=== PATIENT | male | born 1960 | race Caucasian/White ===

== ENCOUNTER 2024-07-28 22:30 | Inpatient (IN) | payer BC ==
[~2024-07-28] VITALS: Ht 175.3 cm; Wt 63.0 kg
[2024-07-28] VITALS (11 sets, daily range): BP systolic 91–111; BP diastolic 53–82
--- NOTE | 2024-07-28 22:35 | NUR ---
PT TO RM 12 VIA EMS
[2024-07-28] MEDS ORDERED: IPRATROPIUM-Albuterol 0.5MG-2.5MG/3 ML NEB ONE (22:45)
[2024-07-28] MEDS ORDERED: methylPREDNISolone SODIUM SUCC 125 MG/2 ML SDV IV ONE (22:45)
[2024-07-28] MEDS ORDERED: SODIUM CHLORIDE 0.9% 250 ML IV PRN (22:50)
[2024-07-28] MEDS ORDERED: dilTIAZem HCL 50 MG/10 ML SDV IV ONE ×2 (22:50→23:00)
[2024-07-28] MEDS ORDERED: DILTIAZEM HCL 125 MG in SODIUM CHLORIDE 0.9% 100 ML IV ONE (22:50)
[2024-07-28] MEDS ORDERED: HYDROcodone 5 MG/Acetaminophen 325 MG/COMBO PO ONE (23:00)
[2024-07-28 23:04] LABS: BASO% 0.4 % (0-3); EOS% 0.8 % (0-8); HEMATOCRIT 31.4 % (39.0-50.0); HEMOGLOBIN 10.7 g/dl (14.0-18.0); IMMATURE GRANULOCYTES 1.2 % (0.0-5.0); LYMPH% 12.5 % (15-41); MEAN CELL VOLUME 83.7 fL CALC (80.0-100.0); MEAN CORPUSCULAR HGB 28.5 pG CALC (26.0-32.0); MEAN CORPUSCULAR HGB CONC 34.1 g/dL CAL (32.0-36.0); MONO% 13.5 % (2-13); NEUT# 8.01 thou/uL (1.82-7.42); NEUT% 71.6 % (42-76); RED BLOOD COUNT 3.75 mill/uL (4.70-6.10)
[2024-07-28] MEDS ORDERED: KETOROLAC TROMETHAMINE 30 MG/ML SDV IV ONE (23:10)
[2024-07-28 23:21] LABS: ALBUMIN 3.5 g/dL (3.2-5.0); ALKALINE PHOSPHATASE 112 u/l (38-126); ANION GAP 13 (6-22 (CALC)); BILIRUBIN, TOTAL 0.3 mg/dL (0.2-1.3); BUN 9 mg/dL (8-23); BUN/CREATININE RATIO 12 (12-20 (CALC)); CARBON DIOXIDE 27 mmol/l (22-30); CHLORIDE 97 mmol/l (95-108); CREATININE 0.8 mg/dL (0.7-1.3); ESTIMATED GFR 99 ML/MIN (>=90 (CALC)); SGOT/AST 38 u/l (19-48); SODIUM 133 mmol/l (137-146); TOTAL PROTEIN 6.7 g/dL (6.3-8.2)
[2024-07-28 23:51] LABS: TSH, 3RD GENERATION 1.82 uIU/mL (0.47 - 4.68)
[2024-07-29] VITALS (64 sets, daily range): BP systolic 90–123; BP diastolic 54–74
--- NOTE | 2024-07-29 | NUR ---
PATIENT FROM 15MG/HR TO 10MG/HR. HR SR 80
[2024-07-29 00:23] LABS: PROTHROMBIN TIME 11.2 SECONDS (9.0-12.5)
[2024-07-29 00:34] LABS: D-DIMER 0.73 mg/L (0.19-0.60)
[2024-07-29] MEDS ORDERED: POTASSIUM CHLORIDE 20 MEQ/TAB PO ONE (00:45)
--- NOTE | 2024-07-29 01:35 | NUR ---
PATIENT TO CT, WRITTER AT SIDE.
--- NOTE | 2024-07-29 02:50 | NUR ---
CARDIZEM STOPPED AT THIS TIME.
--- NOTE | 2024-07-29 03:05 | NUR ---
REPEAT EKG OBTAINED.
[2024-07-29] MEDS ORDERED: METOPROLOL TARTRATE 25 MG/TAB PO ONE (03:10)
[2024-07-29] MEDS ORDERED: AZITHROMYCIN 500 MG in SODIUM CHLORIDE 0.9% 500 ML IV ONE (03:10)
[2024-07-29] MEDS ORDERED: cefTRIAXone SODIUM 2 GM in SODIUM CHLORIDE 0.9% 100 ML IV ONE (03:10)
[2024-07-29] MEDS ORDERED: FAMOTIDINE 10MG/ML 2ML SDV IV PRN (03:15)
[2024-07-29] MEDS ORDERED: ENOXAPARIN SODIUM 40 MG/0.4 ML SYR SC SCH (03:15)
[2024-07-29] MEDS ORDERED: ONDANSETRON 4 MG/TAB ODT PO PRN (03:15)
[2024-07-29] MEDS ORDERED: NICOTINE TRANSDERMAL 21 MG/PATCH TD PRN (03:15)
[2024-07-29] MEDS ORDERED: ALUM & MAG HYDROX-SIMETHICONE 30 ML PO PRN (03:15)
[2024-07-29] MEDS ORDERED: Polyethylene Glycol 3350 17 GM/PKT PO PRN (03:15)
[2024-07-29] MEDS ORDERED: SODIUM CHLORIDE 0.9% 1,000 ML IV PRN (03:15)
[2024-07-29] MEDS ORDERED: IBUPROFEN 800 MG/TAB PO PRN (03:15)
[2024-07-29] MEDS ORDERED: ONDANSETRON HCl 4 MG/2 ML SDV IV PRN (03:15)
[2024-07-29] MEDS ORDERED: METOPROLOL TARTRATE 50 MG/TAB PO SCH (04:00)
[2024-07-29] MEDS ORDERED: OXYCODONE5 M1 PO (04:23)
[2024-07-29] MEDS ORDERED: ADDERALL30 MG PO (04:24)
[2024-07-29] MEDS ORDERED: PROMETHAZINE HY25 M1 PO (04:30)
[2024-07-29] MEDS ORDERED: MONTELUKAST SOD10 MG PO (04:33)
--- NOTE | 2024-07-29 05:05 | NUR ---
REPORT GIVEN TO Alena PAINTER RN
--- NOTE | 2024-07-29 05:25 | NUR ---
PATIENT TRASNPORTED TO MED SURG BY Aakash Quinteros
--- NOTE | 2024-07-29 05:31 | NUR ---
pateints vital upon admission is as follows: Blood pressure 98/61, Pulse 66, Respirations 18, Temperature 96.7, and O2 is 99. Patients weight is 63.2kg
[2024-07-29] MEDS ORDERED: methylPREDNISolone SODIUM SUCC 125 MG/2 ML SDV IV SCH (06:00)
[2024-07-29] MEDS ORDERED: IPRATROPIUM-Albuterol 0.5MG-2.5MG/3 ML IN SCH (07:00)
--- NOTE | 2024-07-29 08:00 | NUR ---
Patient lying in bed with eyes closed.
--- NOTE | 2024-07-29 12:00 | NUR ---
Patient sitting in bed with at bedside.
[2024-07-29] MEDS ORDERED: oxyCODONE HCL 15 MG/TAB PO PRN (12:15)
[2024-07-29] MEDS ORDERED: methylPREDNISolone Sod Succ 40 MG/ML SDV IV SCH (14:00)
[2024-07-29] MEDS ORDERED: APIXABAN BASE 5 MG TAB PO SCH (14:30)
[2024-07-29] MEDS ORDERED: LORazepam 0.5 MG/TAB PO PRN (14:55)
[2024-07-29] MEDS ORDERED: MAGNESIUM SULFATE HEPTAHYDRATE 50 ML IV SCH (15:00)
--- NOTE | 2024-07-29 17:34 | NUR ---
Patient lying in bed with eyes closed.
[2024-07-29] MEDS ORDERED: oxyCODONE HCL 5 MG/TAB PO PRN (18:25)
[2024-07-29] MEDS ORDERED: MONTELUKAST SODIUM 10 MG/TAB PO SCH (18:25)
[2024-07-29] MEDS ORDERED: PROMETHAZINE HCL 25 MG/TAB PO PRN (18:25)
[2024-07-29] MEDS ORDERED: POTASSIUM CHLORIDE 20 MEQ/TAB PO SCH (18:27)
--- NOTE | 2024-07-29 19:50 | NUR ---
PT RESTING IN BED NO DISTRESS NOTED ON ASSESSMENT. PT REPORTING BACK PAIN 02/02. VS WNL ON NC 2L LUNGS CLEAR. IV FLUIDS ONGOING WORKING PROPERLY. SKIN INTACT NO EDEMA. CALL LIGHT WITHIN REACH. PLAN OF CARE ONGOING.
--- NOTE | 2024-07-29 20:56 | NUR ---
PT TACHY WHILE AMBULATING TO RESTROOM HIGH 180S PT ASYMPTOMATIC.
[2024-07-29] MEDS ORDERED: GUAIFENESIN 600 MG/TAB PO SCH (21:00)
--- NOTE | 2024-07-30 00:15 | NUR ---
PT SLEEPING BREATHING EVENLY NO DISTRESS NOTED. CALL LIGHT WITHIN REACH. PLAN OF CARE ONGOING.
[2024-07-30] MEDS ORDERED: AZITHROMYCIN 500 MG in SODIUM CHLORIDE 0.9% 250 ML IV SCH (04:00)
[2024-07-30 04:15] VITALS: BP 128/68
--- NOTE | 2024-07-30 05:00 | NUR ---
PT RESTING NO DISTRESS NOTED ON EXAM. PT ASKING FOR PAIN MEDICATION FOR BACK PAIN 03/05. IV FLUIDS ONGOING. CALL LIGHT WITHIN REACH. PLAN OF CARE ONGOING.
[2024-07-30 05:28] LABS: BASO% 0.1 % (0-3); HEMATOCRIT 28.1 % (39.0-50.0); HEMOGLOBIN 9.6 g/dl (14.0-18.0); IMMATURE GRANULOCYTES 1.3 % (0.0-5.0); LYMPH% 5.9 % (15-41); MEAN CELL VOLUME 85.2 fL CALC (80.0-100.0); MEAN CORPUSCULAR HGB 29.1 pG CALC (26.0-32.0); MEAN CORPUSCULAR HGB CONC 34.2 g/dL CAL (32.0-36.0); MONO% 5.1 % (2-13); NEUT# 11.57 thou/uL (1.82-7.42); NEUT% 87.6 % (42-76); RED BLOOD COUNT 3.3 mill/uL (4.70-6.10); RED CELL DISTRI WIDTH 15.5 % (11.5-15.5)
[2024-07-30 05:37] LABS: ALBUMIN 2.8 g/dL (3.2-5.0); CREATININE 0.6 mg/dL (0.7-1.3); MAGNESIUM 1.9 mg/dL (1.6-2.3)
[2024-07-30 05:40] LABS: POTASSIUM 3.8 mmol/l (3.5-5.1); TOTAL PROTEIN 5.2 g/dL (6.3-8.2)
--- NOTE | 2024-07-30 07:00 | NUR ---
PT SITTING UP IN BED WATCHING TV, PT IS A&O X3, PUPILS PERRL, RESP. EVEN AND UNLABORED, LUNG SOUNDS ARE COARSE, ABD DISTENDED AND SOFT WITH ACTIVE BOWEL SOUNDS, STRONG RADIAL PULSES, WEAK PEDAL PULSES, 20G LAC IV, 18G RAC IV, IV FLUIDS INFUSING AT PRESCRIBED RATE, SAFETY MEASURES REINFORCED, CALL PR[place]HETT WITHIN REACH
[2024-07-30 07:04] VITALS: BP 117/71
[2024-07-30] MEDS ORDERED: MAGNESIUM HYDROXIDE 30 ML UDC PO PRN (10:25)
[2024-07-30 10:26] VITALS: BP 118/75
--- NOTE | 2024-07-30 12:00 | NUR ---
PT SITTING ON THE SIDE OF THE BED EATING LUNCH, PT DENIES ANY NEEDS AT THIS TIME, CALL PRITCHETT WITHIN REACH
[2024-07-30] MEDS ORDERED: LOPRESSOR 550 MG/TAB PO ×2 (12:34)
[2024-07-30] MEDS ORDERED: DOXYCYCLINE100 MG PO (12:34)
[2024-07-30] MEDS ORDERED: ELIQUIS5 MG PO ×2 (12:34)
--- NOTE | 2024-07-30 13:45 | NUR ---
Discharge instructions given. Patient verbalizes understanding of same. Discharged in stable condition via Wheelchair to Home with spouse. All belongings sent with pt.
== END 2024-07-30 13:56 | DRG 308 ==
LOC: ED 22:30 → ED-I 07-29 03:00 → MS2 07-29 03:18 → ED 07-29 03:18 → MS2 07-29 12:01
PROVIDERS: Family Medicine; Nurse Practitioner Family; ADMIT Internal Medicine; ATTEND Internal Medicine
DX: I48.0 Paroxysmal atrial fibrillation (principal); J18.9 Pneumonia, unspecified organism; J44.0 Chronic obstructive pulmonary disease with (acute) lower respiratory infection; C78.02 Secondary malignant neoplasm of left lung; F17.200 Nicotine dependence, unspecified, uncomplicated; Z79.60 Long term (current) use of unspecified immunomodulators and immunosuppressants; Z85.528 Personal history of other malignant neoplasm of kidney; Z90.5 Acquired absence of kidney; Z92.3 Personal history of irradiation; Z20.822 Contact with and (suspected) exposure to COVID-19
CPT/HCPCS: J0456; J0696; J3475; Q9967

== ENCOUNTER 2024-08-01 16:29 | Observation (INO) | payer BC ==
[2024-08-01] VITALS (14 sets, daily range): BP systolic 105–143; BP diastolic 59–90
[~2024-08-01] VITALS: Ht 162.6 cm; Wt 62.2 kg
[~2024-08-01 16:29] MED LIST: ADDERALL30 MG PO; DOXYCYCLINE100 MG PO; ELIQUIS5 MG PO; LOPRESSOR 550 MG/TAB PO; MONTELUKAST SOD10 MG PO; OXYCODONE5 M1 PO; PROMETHAZINE HY25 M1 PO
--- NOTE | 2024-08-01 16:29 | NUR ---
PATIENT TO ROOM 12 VIA EMS STRETCHER. PATIENT APPEARS SLEEPY. EASILY AROUSABLE, HOWEVER QUICK TO FALL ASLEEP. UNDRESSED INTO A GOWN, PLACED ON MONITOR, TRIAGE COMPLETED AT BEDSIDE.
[2024-08-01] MEDS ORDERED: SODIUM CHLORIDE 0.9% 250 ML IV PRN (16:40)
[2024-08-01] MEDS ORDERED: dilTIAZem HCL 50 MG/10 ML SDV IV ONE (16:40)
[2024-08-01] MEDS ORDERED: DILTIAZEM HCL 125 MG in SODIUM CHLORIDE 0.9% 100 ML IV ONE (16:40)
--- NOTE | 2024-08-01 17:00 | NUR ---
Patient with eyes closed and sleepy upon initial assessment. Patient arouses upon verbal stimulti. Patient administered IV Cardizem bolus and drip initiated as per MD order. Patient placed on 2L NC due to c/o shortness of breath. Patient remains unable to keep eyes open. Patient's color pink and patient warm to touch. Patient using no accessory muscles to breathe. Patient's respirations even and unlabored.
[2024-08-01 17:08] LABS: BASO% 0.1 % (0-3); EOS% 0.4 % (0-8); HEMATOCRIT 33.6 % (39.0-50.0); HEMOGLOBIN 11.2 g/dl (14.0-18.0); IMMATURE GRANULOCYTES 1.3 % (0.0-5.0); LYMPH% 10.2 % (15-41); MEAN CELL VOLUME 84.6 fL CALC (80.0-100.0); MEAN CORPUSCULAR HGB 28.2 pG CALC (26.0-32.0); MEAN CORPUSCULAR HGB CONC 33.3 g/dL CAL (32.0-36.0); MONO% 8.1 % (2-13); NEUT# 12.56 thou/uL (1.82-7.42); NEUT% 79.9 % (42-76); RED BLOOD COUNT 3.97 mill/uL (4.70-6.10); RED CELL DISTRI WIDTH 16.1 % (11.5-15.5)
[2024-08-01 17:20] LABS: ALKALINE PHOSPHATASE 93 u/l (38-126); ANION GAP 10 (6-22 (CALC)); BUN 12 mg/dL (8-23); BUN/CREATININE RATIO 18 (12-20 (CALC)); CARBON DIOXIDE 27 mmol/l (22-30); CHLORIDE 100 mmol/l (95-108); CREATININE 0.7 mg/dL (0.7-1.3); ESTIMATED GFR 104 ML/MIN (>=90 (CALC)); SGOT/AST 26 u/l (19-48); SODIUM 132 mmol/l (137-146); TOTAL PROTEIN 5.6 g/dL (6.3-8.2)
[2024-08-01] MEDS ORDERED: cefTRIAXone SODIUM 2 GM in SODIUM CHLORIDE 0.9% 100 ML IV ONE (17:20)
[2024-08-01 17:24] LABS: BILIRUBIN, TOTAL 0.5 mg/dL (0.2-1.3)
[2024-08-01] MEDS ORDERED: AZITHROMYCIN 500 MG in SODIUM CHLORIDE 0.9% 500 ML IV ONE (17:25)
[2024-08-01] MEDS ORDERED: OSELTAMIVIR PHOSPHATE 75 MG/TAB CAP PO ONE (17:25)
--- NOTE | 2024-08-01 19:17 | NUR ---
CARDIZEM TITRATED TO 5MG/MIN HR SR 78
[2024-08-01] MEDS ORDERED: Levofloxacin 750 mg Premix 150 ML IV ONE (19:35)
[2024-08-01] MEDS ORDERED: METOPROLOL TARTRATE 5 MG/5 ML VIAL IV ONE (19:35)
[2024-08-01] MEDS ORDERED: METOPROLOL TARTRATE 50 MG/TAB PO ONE (19:35)
[2024-08-01] MEDS ORDERED: ACETAMINOPHEN 325 MG/TAB PO PRN (19:55)
[2024-08-01] MEDS ORDERED: Zaleplon 5 MG/CAP PO PRN (19:55)
[2024-08-01] MEDS ORDERED: MAGNESIUM HYDROXIDE 30 ML UDC PO PRN (19:55)
--- NOTE | 2024-08-01 19:55 | NUR ---
CARDIZEM STOPPED, PATIENT MEDICATED PER EMAR.
[2024-08-01] MEDS ORDERED: MORPHINE SULFATE PO PRN (20:00)
--- NOTE | 2024-08-01 20:04 | NUR ---
PATIENT TO CT
[2024-08-01] MEDS ORDERED: APIXABAN BASE 5 MG TAB PO SCH (21:00)
[2024-08-01] MEDS ORDERED: METOPROLOL TARTRATE 50 MG/TAB PO SCH (21:00)
[2024-08-01] MEDS ORDERED: PROMETHAZINE HCL 25 MG/ML AMP IV ONE (21:05)
[2024-08-01] MEDS ORDERED: HYDROmorphone HCL 2 MG/AMP IV ONE (21:05)
[2024-08-01] MEDS ORDERED: CLARIFY DOSE PO PRN (21:55)
--- NOTE | 2024-08-01 22:27 | NUR ---
PATIENT MOVED TO ROOM 15 A MED SURG OVERFLOW.
[2024-08-02] VITALS (16 sets, daily range): BP systolic 121–160; BP diastolic 63–93
--- NOTE | 2024-08-02 | NUR ---
PATIENT PROVIDED WITH BLANKETS PER REQUEST. 500ML URINE OUT AT THIS TIME.
[2024-08-02 01:00] LABS: URINE BILIRUBIN - DIPSTICK Negative (NEGATIVE); URINE BLOOD DIPSTICK Negative (NEGATIVE); URINE GLUCOSE - DIPSTICK Negative (NEGATIVE); URINE KETONE Negative (NEGATIVE); URINE LEUK ESTERASE Negative (NEGATIVE); URINE NITRITE - DIPSTICK Negative (Negative); URINE PROTEIN - DIPSTICK Negative (NEG-TRACE); URINE UROBILINOGEN - DIPSTICK 0.2 E.U./dL (0.2)
[2024-08-02 01:03] LABS: URINE COLOR Yellow
--- NOTE | 2024-08-02 02:30 | NUR ---
PATIENT RESTING IN BED, NAD. VSS
--- NOTE | 2024-08-02 04:00 | NUR ---
PATIENT UP, STATES HE HAS TO USE THE BATHROOM. PROVIDED PATIENT WITH URINAL.
[2024-08-02 06:08] LABS: BASO% 0.1 % (0-3); EOS% 0.6 % (0-8); HEMATOCRIT 31.8 % (39.0-50.0); HEMOGLOBIN 10.8 g/dl (14.0-18.0); IMMATURE GRANULOCYTES 0.9 % (0.0-5.0); LYMPH% 8.8 % (15-41); MEAN CORPUSCULAR HGB 28.9 pG CALC (26.0-32.0); MONO% 6.3 % (2-13); NEUT# 12.46 thou/uL (1.82-7.42); NEUT% 83.3 % (42-76); RED BLOOD COUNT 3.74 mill/uL (4.70-6.10); RED CELL DISTRI WIDTH 16.1 % (11.5-15.5)
[2024-08-02 06:22] LABS: BILIRUBIN, TOTAL 0.5 mg/dL (0.2-1.3); CREATININE 0.7 mg/dL (0.7-1.3); POTASSIUM 3.8 mmol/l (3.5-5.1); TOTAL PROTEIN 5.7 g/dL (6.3-8.2)
--- NOTE | 2024-08-02 07:00 | NUR ---
REPORT GIVEN TO Stan STEPHENSON RN
--- NOTE | 2024-08-02 07:30 | NUR ---
PATIENT IS HEARD AGITATED IN ROOM. RN ENTERS ROOM TO FIND PATIENT REMOVING MONITORING EQUIPMENT, DEMANDING TO GO TO THE BATHROOM. RN REMINDS PATIENT OF CALL LIGHT TO ASK FOR ASSISTANCE. PATIENT IS ASSISTED TO FINISH REMOVING MONITORING EQUIPMENT TO LEAVE ROOM TOWARDS BATHROOM. PATIENT AMBULATES WITH STEADY GAIT. PATIENT REQUESTS PAIN MEDS. PROVIDER MADE AWARE, AWAITING ORDER FOR MEDICATION. CALL LIGHT IN REACH, WILL CONTINUE TO MONITOR.
[2024-08-02] MEDS ORDERED: MORPHINE SULFATE 4 MG/ML VIAL IV PRN (07:50)
[2024-08-02] MEDS ORDERED: MORPHINE SULFATE ER 15 MG/TAB PO SCH (10:00)
--- NOTE | 2024-08-02 10:11 | NUR ---
REPORT CALLED TO JUAN ALBERTO OLIVARES. THIS MECHANICAL DEVELOPMENT ENGINEER PATIENT UP TO ROOM.
--- NOTE | 2024-08-02 10:14 | NUR ---
PT ARRIVED TO UNIT VIA STRAECHER TRANSPORT, PT ABLE TO AMBULATE TO STANDING SCALE WITH STANDBY FOR SAFETY.
--- NOTE | 2024-08-02 10:20 | NUR ---
PT AOX3, RESPIRATIONS ARE LABORED WITH A NON-PRODUCTIOVE COUGH (PT REPORTS HE GETS A LITTLE UP NOW AND THEN) LUNGS ARE DIM AT LEFT LOWER LOBE, CLEAR BUT DIM AT RIGHT LOWER LOBE, CLEAR AT BILATERAL UPPER LOBES, BOWEL SOUNDS ARE ACTIVE, PEDAL PULSES ARE PALPABLE TO TOUCH, PT REPORTS "PAIN FROM COUGHING" AT A 7 ON A 0-10 PAIN SCALE.
--- NOTE | 2024-08-02 10:40 | NUR ---
PT RESPIRATIONS ARE MORE LABORED, PT STATES HE FEELS SHORT OF BREATH, CURRRNT OXYGEN AT 94% ON ROOM AIR, PLACED PT ON 2L OF O2, PT TOOK A FEW DEEP BREATHS AND STATES "THATS BETTER" RESPIRATIONS SLOWING DOWN, PT RESPIRATIONS BECOMING MORE EVEN AND UNLABORED.
[2024-08-02] MEDS ORDERED: NICOTINE TRANSDERMAL 21 MG/PATCH TD SCH (12:00)
--- NOTE | 2024-08-02 12:20 | NUR ---
PRN MORNHINE GIVEN FOR PAIN REPORTED AT A 7 ON A 0-10 PAIN SCALE.
--- NOTE | 2024-08-02 13:20 | NUR ---
PT REPORTS PAIN "MUCH BETTER". PT SITTING UP IN BED, RESPIRATIONS ARE EVEN AND UNLABORED ON 2l O2.
[2024-08-02] MEDS ORDERED: Levofloxacin 500 mg Premix 100 ML IV SCH (20:00)
== END 2024-08-02 14:29 | disposition hospice, inpatient (51) | DRG 194 ==
LOC: ED 16:29 → ED-I 19:15 → ED 19:38 → ED-I 19:39 → MS2 08-02 08:41
PROVIDERS: Family Medicine; Nurse Practitioner Family; ADMIT Internal Medicine; ATTEND Internal Medicine
DX: J10.00 Influenza due to other identified influenza virus with unspecified type of pneumonia (principal); C64.9 Malignant neoplasm of unspecified kidney, except renal pelvis; C78.01 Secondary malignant neoplasm of right lung; G89.3 Neoplasm related pain (acute) (chronic); I10 Essential (primary) hypertension; I48.91 Unspecified atrial fibrillation; F17.200 Nicotine dependence, unspecified, uncomplicated; Z51.5 Encounter for palliative care; Z66 Do not resuscitate; Z90.5 Acquired absence of kidney; Z20.822 Contact with and (suspected) exposure to COVID-19
CPT/HCPCS: G0378; J0456; J0696; J1171; J2550

== ENCOUNTER 2024-08-02 14:30 | Inpatient (IN) | payer OTHER, BC ==
[~2024-08-02] VITALS: Ht 170.2 cm; Wt 62.7 kg
--- NOTE | 2024-08-02 14:30 | NUR ---
PT IS AOX4, RESPIRATIONS ARE EVEN AND UNLABORED ON 2L OF O2, PT DOES BECOME SOB WITH ACTIVITY, LUNGS ARE DIM AT LOWER LEFT BASE, CLEAR AT RIGHT LOWER BASE, CLEAR AT BILATERAL UPPER BASES, BOWEL SOUNDS ARE ACTIVE, PEDAL PULSES PALPABLE TO TOUCH.
[2024-08-02 15:40] VITALS: BP 122/73
[2024-08-02 18:30] VITALS: BP 125/72
[2024-08-02] MEDS ORDERED: MORPHINE SULFATE 10 MG/5 ML UDC PO PRN (19:20)
[2024-08-02] MEDS ORDERED: ALBUTEROL SULFATE 2.5 MG VIAL IN PRN (19:20)
[2024-08-02] MEDS ORDERED: ACETAMINOPHEN 325 MG/TAB PO PRN (19:20)
[2024-08-02] MEDS ORDERED: HYDROcodone 5 MG/Acetaminophen 325 MG/COMBO PO PRN (19:20)
[2024-08-02] MEDS ORDERED: DiphenhydrAMINE HCL 50 MG/ML SDV IV PRN (19:20)
[2024-08-02] MEDS ORDERED: LORazepam 2 MG/ML IV PRN (19:20)
[2024-08-02] MEDS ORDERED: HYOSCYAMINE SULFATE 0.125 MG TAB SL PRN (19:20)
[2024-08-02 19:24] VITALS: BP 125/72
[2024-08-02] MEDS ORDERED: CLARIFY DOSE PO PRN ×2 (20:10→23:25)
--- NOTE | 2024-08-02 20:30 | NUR ---
PT SLEEPING EASILY AROUSABLE NO DISTRESS NOTED ON ASSESSMENT. CALL LIGHT WITHIN REACH. PLAN OF CARE ONGOING.
--- NOTE | 2024-08-02 23:55 | NUR ---
PT RESTING NO DISTRESS NOTED. PT PROVIDED WITH ICE CREAM. SPOUSE CALLED AND NURSE GAVE UP DATE. NURSE HELPED PT USE THE PHONE SO THAT HE COULD SPEAK TO HIS . BREATHING SHALLOW BUT NON LABORED ON NC 5L. CALL LIGHT WITHIN REACH. PLAN OF CARE ONGOING.
--- NOTE | 2024-08-03 00:45 | NUR ---
PT SLEEPING NO DISTRESS NOTED ON EXAM. CALL LIGHT WITHIN REACH. PLAN OF CARE ONGOING.
[2024-08-03] MEDS ORDERED: ALBUTEROL SULFATE 2.5 MG VIAL IN PRN (01:55)
[2024-08-03 04:00] VITALS: BP 135/79
--- NOTE | 2024-08-03 04:18 | NUR ---
PT SLEEPING NO DISTRESS NOTED ON EXAM. CALL LIGHT WITHIN REACH. PLAN OF CARE ONGOING.
[2024-08-03 04:38] VITALS: BP 135/79
[2024-08-03 08:34] VITALS: BP 130/77
[2024-08-03] MEDS ORDERED: MONTELUKAST SODIUM 10 MG/TAB PO SCH (11:00)
[2024-08-03] MEDS ORDERED: METOPROLOL TARTRATE 50 MG/TAB PO SCH (11:00)
[2024-08-03] MEDS ORDERED: APIXABAN BASE 5 MG TAB PO SCH (11:00)
[2024-08-03] MEDS ORDERED: DOXYCYCLINE HYCLATE 100 MG/CAP PO SCH (11:00)
[2024-08-03 17:07] VITALS: BP 118/84
== END 2024-08-03 17:48 | disposition hospice, home (50) | DRG 951 ==
LOC: MS2 14:30
PROVIDERS: ADMIT Internal Medicine; ATTEND Internal Medicine
DX: Z51.5 Encounter for palliative care (principal); J10.00 Influenza due to other identified influenza virus with unspecified type of pneumonia; C78.01 Secondary malignant neoplasm of right lung; C64.9 Malignant neoplasm of unspecified kidney, except renal pelvis; I10 Essential (primary) hypertension; I48.91 Unspecified atrial fibrillation; F17.200 Nicotine dependence, unspecified, uncomplicated; Z66 Do not resuscitate; Z92.21 Personal history of antineoplastic chemotherapy; Z92.3 Personal history of irradiation; Z90.5 Acquired absence of kidney
CPT/HCPCS: J2060